=== PATIENT | female | born 1950 | race Caucasian/White ===

== ENCOUNTER 2016-10-10 12:54 | Emergency (ER) | payer OTHER ==
[~2016-10-10] VITALS: Ht 160 cm; Wt 64.0 kg
[2016-10-10 13:02] VITALS: Ht 160 cm; Wt 64.0 kg
[2016-10-10] MEDS ORDERED: HYDROCODONE/APAP (5/325) TAB PO ONE (14:00)
[2016-10-10 14:33] LABS: ALBUMIN 4.5 g/dl (3.3-4.9); CHLORIDE 103 mmol/L (97-110)
[2016-10-10 14:34] LABS: POTASSIUM 3.9 mmol/L (3.5-5.1); SODIUM 140 mmol/L (135-144)
[2016-10-10 14:36] LABS: CREATININE 0.76 mg/dl (0.44-1.00)
[2016-10-10 14:37] LABS: ALANINE AMINOTRANSFERASE 31 IU/L (13-69); ALBUMIN/GLOBULIN RATIO 1.32; ALKALINE PHOSPHATASE 112 IU/L (42-121); ANION GAP 14 (8-16); ASPARTATE AMINO TRANSFERASE 25 IU/L (15-46); BILIRUBIN,INDIRECT 0.5 mg/dl (0-1.1); BILIRUBIN,TOTAL 0.5 mg/dl (0.2-1.3); BLOOD UREA NITROGEN 16 mg/dl (7-20); CALCIUM 9.4 mg/dl (8.4-10.2); CARBON DIOXIDE 27 mmol/L (21-31); GLUCOSE 99 mg/dl (70-220); TOTAL PROTEIN 7.9 g/dl (6.1-8.1)
--- NOTE | 2016-10-10 14:47 | ERD ---
ER Documentation Chief Complaint Date/Time DATE: 10/10/16 TIME: 14:44 Chief Complaint right index finger swelling/pain x 1 month, has been treated with antibioti HPI 65-year-old female was sent here by her PCP to evaluate for possible septic joint of her left index finger. Patient stated that her left index finger have been swollen and painful for the last 30 days. Denies any injury at the onset of the symptoms. Patient reports feeling burning pain and itching upon awake and noticed her left index finger has been red and swollen. She states that she had been taking both Bactrim DS and Keflex for the last 30 days without any improvement. Last night she felt subjective fever, but did not check her temperature at home. Patient has history of hypertension, hypothyroidism and high cholesterol. Denies any other medical history. ROS All systems reviewed and are negative except as per history of present illness. Medications Home Meds Active Scripts Prednisone* (Prednisone*) 20 Mg Tab, 60 MG PO DAILY for 3 Days, TAB Prov:DALTON MORELOS. LISBETH 10/10/16 Colchicine* (Colcrys*) 0.6 Mg Tablet, 0.6 MG PO as directed, #3 TAB Take 2 tabs immediately, then 1 tab 1 hour later. Prov:DALTON MORELOS. LISBETH 10/10/16 Ibuprofen* (Motrin*) 600 Mg Tab, 600 MG PO Q6H Y for PAIN AND OR ELEVATED TEMP, #30 TAB Prov:DALTON MORELOS. LISBETH 10/10/16 Allergies Allergies: Coded Allergies: No Known Allergy (Unverified , 10/10/16) PMhx/Soc Hypertension, high cholesterol, hypothyroid Physical Exam Vitals Vital Signs Date Time Temp Pulse Resp B/P Pulse Ox O2 Delivery O2 Flow Rate FiO2 10/10/16 13:02 97.8 73 18 184/80 98 Physical Exam General impression: Well-developed, well-nourished. Alert, oriented, in no acute distress Head: Normocephalic, atraumatic. Eyes: PERRL, EOM normal. Sclerae are normal. Conjunctiva not injected. Neck: Supple, nontender. No lymphadenopathy. No nuchal rigidity. Respiration: Normal respiratory effort. Lungs clear to auscultate bilaterally. No wheezes, rales or rhonchi. Cardiovascular: Regular rate and rhythm. No murmurs or extra heart sounds. Abdomen: Abdomen normal to inspection. Nontender. No masses or organomegaly. Bowel sounds normal. Extremities: Left index finger swollen over the PIP joint, was a 1 cm area of raised erythematous tophi-like structure on the dorsal aspect. Tender to palpation on the dorsal aspect, no joint line tenderness. The affected finger is in the extended position, unable to flex. Neurovascularly intact distally. Neuro: Mental status normal, speech normal. 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 Skin: Normal turgor. No rash or lesions. Psych: Normal mood and affect. Result Diagram: 10/10/16 1410 Results 24 hrs Laboratory Tests Test 10/10/16 14:10 10/10/16 14:15 Sodium Level 140mmol/L Potassium Level 3.9mmol/L Chloride Level 103mmol/L Carbon Dioxide Level 27mmol/L Anion Gap 14 Blood Urea Nitrogen 16mg/dl Creatinine 0.76mg/dl Glucose Level 99mg/dl Calcium Level 9.4mg/dl Total Bilirubin 0.5mg/dl Direct Bilirubin 0.00mg/dl Indirect Bilirubin 0.5mg/dl Aspartate Amino Transf (AST/SGOT) 25IU/L Alanine Aminotransferase (ALT/SGPT) 31IU/L Alkaline Phosphatase 112IU/L C-Reactive Protein < 0.5mg/dl Total Protein 7.9g/dl Albumin 4.5g/dl Globulin 3.40g/dl Albumin/Globulin Ratio 1.32 Uric Acid 3.0mg/dl Current Medications Medications (Trade) Dose Ordered Sig/Yee Route PRN Reason Start Time Stop Time Status Last Admin Dose Admin Acetaminophen/ Hydrocodone Bitart ([place] (5/325)) 1 tab ONCE ONCE PO 10/10/16 14:00 10/10/16 14:01 DC 10/10/16 15:16 PROCEDURE: XR Finger. CLINICAL INDICATION: Pain and swelling x1 month. TECHNIQUE: Three views of the left second finger are available for review. COMPARISON: None available FINDINGS: No acute fracture or dislocation is identified. Bony mineralization is normal. No focal osseous lesion is seen. There is no radiodense foreign body. IMPRESSION: 1. Unremarkable left second digit x-ray series. RPTAT: EE .Michael Grace MD, MD Date Time Electronically viewed and signed by .Michael Grace MD, MD on 10/10/2016 14: 51 .R/ CC: DALTON MOREOLS DISH MAKER PROCEDURE: US left second finger. CLINICAL INDICATION: Pain and swelling TECHNIQUE: Multiple real-time longitudinal and transverse images of the left second digit were acquired utilizing a linear transducer. Images were reviewed on a high-resolution PACS workstation. COMPARISON: None FINDINGS: No fluid collection, abscess, mass, joint effusion, or other abnormality is seen in the visualized portion of the left second finger. IMPRESSION: 1. No sonographic evidence of abnormality is identified in the left second finger. RPTAT: EE .Michael Grace MD, MD Date Time Electronically viewed and signed by .Michael Grace MD, MD on 10/10/2016 14: 50 .R/ CC: DALTON MORELOS. DISH MAKER Procedures/MDM Well-appearing 65-year-old female presented ED was left index finger swelling and pain 1 month. Her presentation is not consistent with septic arthritis. However, CBC, CMP, CRP and ESR are obtained. I do not have the lab results at this time due to technical issues at the lab. Uric acid is 3.0. X-ray and soft tissue ultrasound of the left index finger are both negative, no fractures, dislocation, osteomyelitis, or abscess are seen. Most likely patient's symptoms are due to gout. She has a low uric acid level at this time, however it is not diagnostic due to her acute gout attack. Ibuprofen, colchicine, and prednisone prescribed for the patient. Patient advised to call the ED tomorrow to follow-up with the lab results. The case was reviewed and discussed with Dr. Carcamo, who also examined the patient. Dr. Carcamo agrees with the plan of care including labs, treatment, and advanced imaging as appropriate. Departure Diagnosis: Primary Impression: Finger pain, left Condition: Good DALTON MORELOS NP Oct 10, 2016 14:47
--- NOTE | 2016-10-10 14:50 | RADRPT ---
PROCEDURE: US left second finger. CLINICAL INDICATION: Pain and swelling TECHNIQUE: Multiple real-time longitudinal and transverse images of the left second digit were acq uired utilizing a linear transducer. Images were reviewed on a high-resolution PACS workstation. COMPARISON: None FINDINGS: No fluid collection, abscess, mass, joint effusion, or other abnormality is seen in the visualized p ortion of the left second finger. IMPRESSION: 1. No sonographic evidence of abnormality is identified in the left second finger. RPTAT: EE .Michael Grace MD, MD Date Time Electronically viewed and signed by .Michael Grace MD, MD on 10/10/2016 14:50 .R/
--- NOTE | 2016-10-10 14:51 | RADRPT ---
PROCEDURE: XR Finger. CLINICAL INDICATION: Pain and swelling x1 month. TECHNIQUE: Three views of the left second finger are available for review. COMPARISON: None available FINDINGS: No acute fracture or dislocation is identified. Bony mineralization is normal. No focal osseous le [place] is seen. There is no radiodense foreign body. IMPRESSION: 1. Unremarkable left second digit x-ray series. RPTAT: EE .Michael Grace MD, MD Date Time Electronically viewed and signed by .Michael Grace MD, on 10/10/2016 14:51 .R/
[2016-10-10 15:00] LABS: C-REACTIVE PROTEIN < 0.5 mg/dl (0.0-0.9)
[2016-10-10 15:06] LABS: ADD SCAN DIFF NO
[2016-10-10] MEDS ORDERED: PRED20TA PO (15:41)
[2016-10-10] MEDS ORDERED: COLC0.6T6 PO (15:41)
[2016-10-10] MEDS ORDERED: IBUP-1542 PO (15:41)
[2016-10-10 16:17] VITALS: BP 163/63; PULSE 75; RESP 18; TEMP 97.8
[2016-10-10 18:13] LABS: BASOPHIL # 0.1 10^3/ul (0.0-0.1); BASOPHILS % 1.2 % (0.0-2.0); EOSINOPHILS # 0.1 10^3/ul (0.0-0.5); EOSINOPHILS % 1.5 % (0.0-7.0); HEMATOCRIT 39.9 % (37.0-47.0); HEMOGLOBIN 13.6 g/dl (12.0-16.0); LYMPHOCYTES # 2.8 10^3/ul (0.8-2.9); LYMPHOCYTES % 37.5 % (15.0-51.0); MEAN CORPUSCULAR HEMOGLOBIN 31.3 pg (29.0-33.0); MEAN CORPUSCULAR HGB CONC 34.1 g/dl (32.0-37.0); MEAN CORPUSCULAR VOLUME 91.9 fl (82.0-101.0); MEAN PLATELET VOLUME 11.7 fl (7.4-10.4); MONOCYTE # 0.6 10^3/ul (0.3-0.9); MONOCYTES % 7.6 % (0.0-11.0); NEUTROPHIL # 3.9 10^3/ul (1.6-7.5); NEUTROPHILS % 51.9 % (39.0-77.0); PLATELET COUNT 220 10^3/UL (140-415); RED BLOOD COUNT 4.34 10^6/ul (4.20-5.40); RED CELL DISTRIBUTION WIDTH 12.2 % (11.5-14.5); WHITE BLOOD COUNT 7.5 10^3/ul (4.8-10.8)
== END 2016-10-10 16:17 | disposition home or self-care (01) ==
LOC: FTE 12:54
DX: M79.645 Pain in left finger(s) (principal); I10 Essential (primary) hypertension; E03.9 Hypothyroidism, unspecified
CPT/HCPCS: 29130; 36415; 73140; 76536; 80053; 84560; 85025; 85651; 86140; Z7502; Z7610